=== PATIENT | male | born 1985 | race Caucasian/White ===

== ENCOUNTER → 2022-09-21 13:26 | Outpatient (CLI) | payer OTHER, MEDICAID, SELFPAY ==
[2022-09-21 15:40] LABS: Add Manual Diff / Slide Review NO; Basophils Absolute Auto 0 /uL (0-100); Basophils Percent Auto 0.4 % (0-2); Eosinophils Absolute Auto 0 /uL (0-450); Eosinophils Percent Auto 0.6 % (2-4); Hematocrit 44.4 % (41-53); Lymphocytes Absolute Auto 1500 /uL (1100-4500); Lymphocytes Percent Auto 23.2 % (25-40); Mean Corpuscular HGB Conc 33.8 % (30-36); Mean Corpuscular Hemoglobin 29.6 PG (26-34); Mean Corpuscular Volume 87.6 fL (80-100); Monocytes Absolute Auto 500 /uL (0-900); Monocytes Percent Auto 7.4 % (3-14); Neutrophils Absolute Auto 4300 /uL (1500-7000); Neutrophils Percent Auto 68.4 % (50-75); Platelet Count 272 X10^3/uL (150-400); Red Blood Cell Count 5.07 X10^6/uL (4.5-5.9); Red Cell Distribution Width 14.1 % (11.6-14.8); White Blood Cell Count 6.3 X10^3/uL (4.5-11.0)
[2022-09-21 16:12] LABS: Alanine Aminotransferase 23 IU/L (<50); Albumin 4.6 g/dL (3.5-5.0); Albumin Globulin Ratio 1.2 (1.0-2.8); Alkaline Phosphatase 69 U/L (38-126); Aspartate Aminotransferase 26 IU/L (17-59); BUN Creatinine Ratio 13.5 (6-22); Bilirubin Total 0.6 mg/dL (0.2-1.3); Blood Urea Nitrogen 12 mg/dL (9-20); Calcium 9.2 mg/dL (8.4-10.2); Carbon Dioxide 28 mmol/L (22-32); Chloride 102 mmol/L (98-107); Estimated Glomerular Filt Rate > 60 mL/min (>60); Globulin 3.7 g/dL (1.7-4.1); Glucose 99 mg/dL (70-100); HEMOLYSIS < 15 (0-50); Potassium 4.4 mmol/L (3.4-5.1); Sodium 139 mmol/L (137-145); Total Protein 8.3 g/dL (6.3-8.2)
== END ==
PROVIDERS: Referring Provider Registered Nurse; Visit Provider Registered Nurse
DX: R11.2 Nausea with vomiting, unspecified (principal); R19.7 Diarrhea, unspecified
CPT/HCPCS: 36415; 80053; 85025

== ENCOUNTER 2022-12-03 10:47 | Emergency (ER) | payer OTHER, MEDICAID, SELFPAY ==
[2022-12-03 11:00] VITALS: BP 140/93; PULSE 90; RESP 14; TEMP 36.6; O2SAT 99; BMI 25.7
--- NOTE | 2022-12-03 11:09 | DI.RAD.S_ITS ---
PROCEDURE: XR CHEST 1V INDICATIONS: suspected sepsis TECHNIQUE: One view of the chest was acquired. COMPARISON: None. FINDINGS: Surgical changes and devices: None. Lungs and pleura: Lungs are clear. No pleural effusions or pneumothorax. Mediastinum: Mediastinal contours appear normal. Heart size is normal. Bones and chest wall: No suspicious bony lesions. Overlying soft tissues appear unremarkable. IMPRESSION: No acute cardiopulmonary findings Approved by: Harvey Lacey M.D. on 12/03/2022 at 11:16
[2022-12-03] MEDS: SODIUM CHLORIDE 0.9% 1,000 ML 1000 ML IV ×2 (11:25→14:39)
[2022-12-03] MEDS: ONDANSETRON 4 MG/2 ML INJ IV (11:26)
[2022-12-03 11:44] LABS: INR 1.2 (0.9-1.3); Prothrombin Time 14.1 SECONDS (10.1-12.7)
[2022-12-03 11:46] LABS: Alanine Aminotransferase 23 IU/L (<50); Albumin 4.6 g/dL (3.5-5.0); Albumin Globulin Ratio 1.2 (1.0-2.8); Alkaline Phosphatase 71 U/L (38-126); Aspartate Aminotransferase 26 IU/L (17-59); BUN Creatinine Ratio 14.9 (6-22); Bilirubin Total 0.9 mg/dL (0.2-1.3); Blood Urea Nitrogen 13 mg/dL (9-20); Calcium 9.4 mg/dL (8.4-10.2); Carbon Dioxide 22 mmol/L (22-32); Chloride 95 mmol/L (98-107); Estimated Glomerular Filt Rate > 60 mL/min (>60); Glucose 114 mg/dL (70-100); HEMOLYSIS < 15 (0-50); Lactate (Lactic Acid) 0.9 mmol/L (0.7-2.1); Lipase 44 U/L (23-300); PTT Partial Thromboplastin Tim 32 SECONDS (26-36); Potassium 3.9 mmol/L (3.4-5.1); Sodium 133 mmol/L (137-145); Total Protein 8.6 g/dL (6.3-8.2)
[2022-12-03 12:13] LABS: Add Manual Diff / Slide Review NO; Basophils Absolute Auto 0 /uL (0-100); Basophils Percent Auto 0.2 % (0-2); Eosinophils Absolute Auto 0 /uL (0-450); Eosinophils Percent Auto 0.1 % (2-4); Hematocrit 43.9 % (41-53); Hemoglobin 14.7 g/dL (13.5-17.5); Influenza A - CEPHEID Flu A NEGATIVE (NEGATIVE); Influenza B - CEPHEID Flu B NEGATIVE (NEGATIVE); Lymphocytes Absolute Auto 2100 /uL (1100-4500); Mean Corpuscular HGB Conc 33.5 % (30-36); Mean Corpuscular Hemoglobin 28.7 PG (26-34); Mean Corpuscular Volume 85.8 fL (80-100); Monocytes Absolute Auto 1300 /uL (0-900); Monocytes Percent Auto 10.7 % (3-14); Neutrophils Absolute Auto 8400 /uL (1500-7000); Platelet Count 218 X10^3/uL (150-400); Red Blood Cell Count 5.12 X10^6/uL (4.5-5.9); Red Cell Distribution Width 14.7 % (11.6-14.8); Respiratory Syncytial Virus Negative (Negative); White Blood Cell Count 11.8 X10^3/uL (4.5-11.0)
--- NOTE | 2022-12-03 12:17 | ED_ITS ---
HPI - Dental/Oral <RICO Marcelino - Last Filed: 12/03/22 14:55> General Chief complaint: Fever Stated complaint: ABSCESS Time Seen by Provider: 12/03/22 12:03 Source: patient Mode of arrival: Ambulatory History of Present Illness HPI Narrative: Patient presents for dental pain due to suspected dental abscess which he thought popped yesterday and is draining pus from the lower, lateral left tooth which is broken. Patient has history dental decay, multiple fractured teeth with recent dental infection 1 month ago and patient states it was an abscess that started draining prior to him starting Augmentin which he was prescribed. He presents today with worsening lower left dental pain complaining of sensation of abscess popping yesterday and dental nerve pain with anterior cervical lymphadenopathy, fever, chills, nausea and vomiting. Related Data Previous Rx's Medication Instructions Recorded amoxicillin 875 mg-potassium 1 tab PO BID 10 days #20 tabs 12/03/22 clavulanate 125 mg tablet chlorhexidine gluconate 0.12 % 15 ml buccal DAILY gum infection 12/03/22 mouthwash #473 mL hydrocodone 5 mg-acetaminophen 325 1 tab PO TID PRN pain #10 tabs 12/03/22 mg tablet ibuprofen 600 mg tablet 600 mg PO Q6H PRN fever or pain 12/03/22 #30 tabs Allergies Allergy/AdvReac Type Severity Reaction Status Date / Time No Known Drug Allergies Allergy Verified 12/03/22 11:08 Review of Systems <RICO Marcelino - Last Filed: 12/03/22 14:55> Review of Systems ROS Unobtainable: All systems reviewed & are unremarkable except as noted in HPI and below Patient History <RICO Marcelino - Last Filed: 12/03/22 14:55> Medical History (Updated 12/03/22 @ 14:52 by RICO Marcelino) Substance abuse in remission Social History Smoking Status: Current every day smoker Smoking Status: Current every day smoker tobacco type: vaping alcohol intake frequency: holidays/special occasions only Substance Use Type: former substance user and marijuana Exam <RICO Marcelino - Last Filed: 12/03/22 14:55> Narrative Exam Narrative: Reviewed vitals signs and nursing notes. General: cooperative, comfortable, flushed, in pain and mild in no acute distress, well groomed HEENT: symmetrical facial expressions, moist mucous membranes, significant dental decay however gingiva is not erythematous or edematous, 19. Has abscess present at the base which is draining, it is not fluctuant, deep or drainable further. Patient is able to push his finger on the outside and some possible come out on the lateral aspect but the surrounding tissue is not boggy or deep. Left-sided anterior cervical lymphadenopathy but patient is able to turn his head to the left and right and up and down without range of motion difficulty, vision changes, tenderness over his temporal region, he has symmetrical face expressions, PERRLA, no edema or tenderness underneath his jaw or meningeal signs Cardiovascular: regular rate and rhythm, no peripheral edema, warm extremities Respiratory: normal effort, able to speak in complete sentences, without wheezing, stridor, or abnormal breath sounds. No retractions or tachypnea. GI: abdomen soft, nontender to palpation, nondistended, without masses, rebound tenderness or exquisite tenderness with exam. MSK: moves all extremities, neurovascularly intact, no weakness, normal tone Skin: brisk capillary refill, without pallor or erythema, no open wounds Neuro: normal speech and cognition, A&O x3, ambulatory, clear speech Psych: mental status is grossly normal, congruent mood, normal affect, pleasant and cooperative Initial Vital Signs Initial Vital Signs: Vital Signs Temperature 97.9 F 12/03/22 11:00 Pulse Rate 90 12/03/22 11:00 Respiratory Rate 14 12/03/22 11:00 Blood Pressure 140/93 H 12/03/22 11:00 Pulse Oximetry 99 12/03/22 11:00 Oxygen Delivery Method 12/03/22 11:00 <Lucille Villegas, DO - Last Filed: 12/03/22 19:17> Initial Vital Signs Initial Vital Signs: Vital Signs Temperature 97.9 F 12/03/22 11:00 Pulse Rate 90 12/03/22 11:00 Respiratory Rate 14 12/03/22 11:00 Blood Pressure 140/93 H 12/03/22 11:00 Pulse Oximetry 99 12/03/22 11:00 Oxygen Delivery Method 12/03/22 11:00 Course <RICO Marcelino - Last Filed: 12/03/22 14:55> Orders Ordered: ED Orders 12/03/22 11:09 XR chest 1V Stat RT Consult Eval and Treat NOW 12/03/22 11:16 Complete Blood Count AUTO DIFF Stat Comprehensive Metabolic Panel Stat Covid-19 + FLU A/B + RSV - PCR Stat Lactate (Lactic Acid) Stat Lipase Stat Partial Thromboplastin Time Stat Procalcitonin Stat Prothrombin Time INR Stat 12/03/22 12:05 Blood Culture Stat 12/03/22 12:13 Wound Culture and Gram Stain Stat 12/03/22 12:19 CT soft tissue neck w con Stat Discontinued Medications Amoxicillin/Clavulanate Potassium (Amoxicillin/Clav 875/125 Mg) 1 tab PO NOW ONE Stop: 12/03/22 12:15 Last Admin: 12/03/22 14:31 Dose: Not Given Documented By: ANN Dexamethasone (Dexamethasone 10 Mg/Ml Vial) 10 mg PO NOW ONE Stop: 12/03/22 12:15 Last Admin: 12/03/22 12:53 Dose: 10 mg Documented By: YOUSIF Hydromorphone HCl (Hydromorphone 0.5 Mg Inj) 0.5 mg IV NOW ONE Stop: 12/03/22 12:23 Last Admin: 12/03/22 12:53 Dose: 0.5 mg Documented By: YOUSIF Sodium Chloride (Normal Saline 0.9%) 1,000 mls @ 1,000 mls/hr IV BOLUS ONE Stop: 12/03/22 12:08 Last Infusion: 12/03/22 12:52 Dose: 0 mls/hr Documented By: Admin: 12/03/22 11:25 Dose: 1,000 mls/hr Documented By: ANN Ampicillin Sodium/Sulbactam (Sodium 3 gm/ Sodium Chloride) 100 mls @ 200 mls/hr IV NOW ONE Stop: 12/03/22 12:18 Last Infusion: 12/03/22 13:33 Dose: 0 mls/hr Documented By: Admin: 12/03/22 12:53 Dose: 200 mls/hr Documented By: YOUSIF Sodium Chloride (Normal Saline 0.9%) 1,000 mls @ 1,000 mls/hr IV BOLUS ONE Stop: 12/03/22 13:38 Last Infusion: 12/03/22 15:05 Dose: 0 mls/hr Documented By: Admin: 12/03/22 14:39 Dose: 1,000 mls/hr Documented By: ANN Ketorolac Tromethamine (Ketorolac 30 Mg/Ml Vial) 15 mg IM NOW ONE Stop: 12/03/22 12:15 Last Admin: 12/03/22 12:54 Dose: 15 mg Documented By: YOUSIF Ondansetron HCl (Ondansetron 4 Mg/2 Ml Inj) 4 mg IV NOW PRN PRN Reason: Nausea And Vomiting Last Admin: 12/03/22 11:26 Dose: 4 mg Documented By: ANN Oxycodone/Acetaminophen (Oxycodone/Acetaminophen 5/325 Tablet) 1 tab PO NOW ONE Stop: 12/03/22 12:16 Last Admin: 12/03/22 14:31 Dose: Not Given Documented By: ANN Vital Signs Vital signs: Vital Signs - 8 hr 12/03/22 14:08 12/03/22 14:08 12/03/22 15:06 Pulse Rate 75 Blood Pressure 125/75 Pulse Oximetry 96 99 12/03/22 15:07 12/03/22 15:07 Pulse Rate 78 Blood Pressure 120/63 Pulse Oximetry 97 <Lucille Villegas DO - Last Filed: 12/03/22 19:17> Orders Ordered: ED Orders 12/03/22 11:09 XR chest 1V Stat RT Consult Eval and Treat NOW 12/03/22 11:16 Complete Blood Count AUTO DIFF Stat Comprehensive Metabolic Panel Stat Covid-19 + FLU A/B + RSV - PCR Stat Lactate (Lactic Acid) Stat Lipase Stat Partial Thromboplastin Time Stat Procalcitonin Stat Prothrombin Time INR Stat 12/03/22 12:05 Blood Culture Stat 12/03/22 12:13 Wound Culture and Gram Stain Stat 12/03/22 12:19 CT soft tissue neck w con Stat Discontinued Medications Amoxicillin/Clavulanate Potassium (Amoxicillin/Clav 875/125 Mg) 1 tab PO NOW ONE Stop: 12/03/22 12:15 Last Admin: 12/03/22 14:31 Dose: Not Given Documented By: ANN Dexamethasone (Dexamethasone 10 Mg/Ml Vial) 10 mg PO NOW ONE Stop: 12/03/22 12:15 Last Admin: 12/03/22 12:53 Dose: 10 mg Documented By: YOUSIF Hydromorphone HCl (Hydromorphone 0.5 Mg Inj) 0.5 mg IV NOW ONE Stop: 12/03/22 12:23 Last Admin: 12/03/22 12:53 Dose: 0.5 mg Documented By: YOUSIF Sodium Chloride (Normal Saline 0.9%) 1,000 mls @ 1,000 mls/hr IV BOLUS ONE Stop: 12/03/22 12:08 Last Infusion: 12/03/22 12:52 Dose: 0 mls/hr Documented By: Admin: 12/03/22 11:25 Dose: 1,000 mls/hr Documented By: ANN Ampicillin Sodium/Sulbactam (Sodium 3 gm/ Sodium Chloride) 100 mls @ 200 mls/hr IV NOW ONE Stop: 12/03/22 12:18 Last Infusion: 12/03/22 13:33 Dose: 0 mls/hr Documented By: Admin: 12/03/22 12:53 Dose: 200 mls/hr Documented By: YOUSIF Sodium Chloride (Normal Saline 0.9%) 1,000 mls @ 1,000 mls/hr IV BOLUS ONE Stop: 12/03/22 13:38 Last Infusion: 12/03/22 15:05 Dose: 0 mls/hr Documented By: Admin: 12/03/22 14:39 Dose: 1,000 mls/hr Documented By: ANN Ketorolac Tromethamine (Ketorolac 30 Mg/Ml Vial) 15 mg IM NOW ONE Stop: 12/03/22 12:15 Last Admin: 12/03/22 12:54 Dose: 15 mg Documented By: YOUSIF Ondansetron HCl (Ondansetron 4 Mg/2 Ml Inj) 4 mg IV NOW PRN PRN Reason: Nausea And Vomiting Last Admin: 12/03/22 11:26 Dose: 4 mg Documented By: ANN Oxycodone/Acetaminophen (Oxycodone/Acetaminophen 5/325 Tablet) 1 tab PO NOW ONE Stop: 12/03/22 12:16 Last Admin: 12/03/22 14:31 Dose: Not Given Documented By: ANN Vital Signs Vital signs: Vital Signs - 8 hr 12/03/22 14:08 12/03/22 14:08 12/03/22 15:06 Pulse Rate 75 Blood Pressure 125/75 Pulse Oximetry 96 99 12/03/22 15:07 12/03/22 15:07 Pulse Rate 78 Blood Pressure 120/63 Pulse Oximetry 97 MDM - Dental/Oral <Yanyjaennette Benjamin, [facility] - Last Filed: 12/03/22 14:55> Lab Data 12/03/22 11:16 12/03/22 11:16 Labs: Lab Results 12/03/22 12/03/22 12/03/22 Range/Units 11:16 11:16 11:16 WBC 11.8 H (4.5-11.0) X10^3/uL RBC 5.12 (4.5-5.9) X10^6/uL Hgb 14.7 (13.5-17.5) g/dL Hct 43.9 (41-53) % MCV 85.8 (80-100) fL MCH 28.7 (26-34) PG MCHC 33.5 (30-36) % RDW 14.7 (11.6-14.8) % Plt Count 218 (150-400) X10^3/uL Neut % (Auto) 71.0 (50-75) % Lymph % (Auto) 18.0 L (25-40) % [place] % (Auto) 10.7 (3-14) % Eos % (Auto) 0.1 L (2-4) % Baso % (Auto) 0.2 (0-2) % Neut # (Auto) 8400 H (6703-5087) /uL Lymph # (Auto) 2100 (9962-0929) /uL [place] # (Auto) 1300 H (0-900) /uL Eos # (Auto) 0 (0-450) /uL Baso # (Auto) 0 (0-100) /uL PT 14.1 H (10.1-12.7) SECONDS INR 1.2 (0.9-1.3) APTT 32 (26-36) SECONDS Sodium 133 L (137-145) mmol/L Potassium 3.9 (3.4-5.1) mmol/L Chloride 95 L (98-107) mmol/L Carbon Dioxide 22 (22-32) mmol/L BUN 13 (9-20) mg/dL Creatinine 0.87 (0.66-1.25) mg/dL Estimated GFR > 60 (>60) mL/min BUN/Creatinine Ratio 14.9 (6-22) Glucose 114 H (70-100) mg/dL Lactate (0.7-2.1) mmol/L Calcium 9.4 (8.4-10.2) mg/dL Total Bilirubin 0.9 (0.2-1.3) mg/dL AST 26 (17-59) IU/L ALT 23 (<50) IU/L Alkaline Phosphatase 71 (38-126) U/L Total Protein 8.6 H (6.3-8.2) g/dL Albumin 4.6 (3.5-5.0) g/dL Globulin 4.0 (1.7-4.1) g/dL Albumin/Globulin Ratio 1.2 (1.0-2.8) Lipase 44 (23-300) U/L Procalcitonin 1.10 H (<0.5) ng/mL SARS-CoV-2 (PCR) (Negative) Influenza A (RT-PCR) (NEGATIVE) Influenza B (RT-PCR) (NEGATIVE) RSV (PCR) (Negative) 12/03/22 12/03/22 Range/Units 11:16 11:16 WBC (4.5-11.0) X10^3/uL RBC (4.5-5.9) X10^6/uL Hgb (13.5-17.5) g/dL Hct (41-53) % MCV (80-100) fL MCH (26-34) PG MCHC (30-36) % RDW (11.6-14.8) % Plt Count (150-400) X10^3/uL Neut % (Auto) (50-75) % Lymph % (Auto) (25-40) % [place] % (Auto) (3-14) % Eos % (Auto) (2-4) % Baso % (Auto) (0-2) % Neut # (Auto) (1722-9506) /uL Lymph # (Auto) (8459-5409) /uL [place] # (Auto) (0-900) /uL Eos # (Auto) (0-450) /uL Baso # (Auto) (0-100) /uL PT (10.1-12.7) SECONDS INR (0.9-1.3) APTT (26-36) SECONDS Sodium (137-145) mmol/L Potassium (3.4-5.1) mmol/L Chloride (98-107) mmol/L Carbon Dioxide (22-32) mmol/L BUN (9-20) mg/dL Creatinine (0.66-1.25) mg/dL Estimated GFR (>60) mL/min BUN/Creatinine Ratio (6-22) Glucose (70-100) mg/dL Lactate 0.9 (0.7-2.1) mmol/L Calcium (8.4-10.2) mg/dL Total Bilirubin (0.2-1.3) mg/dL AST (17-59) IU/L ALT (<50) IU/L Alkaline Phosphatase (38-126) U/L Total Protein (6.3-8.2) g/dL Albumin (3.5-5.0) g/dL Globulin (1.7-4.1) g/dL Albumin/Globulin Ratio (1.0-2.8) Lipase (23-300) U/L Procalcitonin (<0.5) ng/mL SARS-CoV-2 (PCR) Negative (Negative) Influenza A (RT-PCR) Flu a negative (NEGATIVE) Influenza B (RT-PCR) Flu b negative (NEGATIVE) RSV (PCR) Negative (Negative) Imaging Data CTA - brain/neck: Radiologist's Impression: PROCEDURE:? CT SOFT TISSUE NECK W CON ? INDICATIONS:? LT dental infection vs lupe angina/necrotizing gingivitis ? TECHNIQUE:? After the administration of intravenous contrast, 3.0 mm axial sections acquired from the sella to the aortic arch.? Additional oblique axial 3.0 mm sections acquired through the pharynx.? 3 mm thick coronal and sagittal reformats were generated.? For radiation dose reduction, the following was used:? automated exposure control.? ? COMPARISON:? None. ? FINDINGS: ? Skull Base: The visualized intracranial contents, skull, and orbits are unremarkable.? Visualized paranasal sinuses are clear. ? Pharynx and Larynx:? The nasopharyngeal airway is patent and midline.? Parapharyngeal soft tissues including palatine tonsils and base of the tongue are normal.? Retropharyngeal space unremarkable.? Normal appearance of the false and true vocal cords. ? ? Muscles and Fascial Planes:? Fascial planes are well maintained.? No abscess or mass lesion. ? Lymph Nodes:? Submental adenopathy measures up to 1.4 cm with diffuse subcutaneous edema over the mandible.? Additional scattered deep cervical smaller nodes noted.? No abscess ? Vasculature:? Unremarkable. ? Submandibular and Parotid Glands:? Normal in size and attenuation. ? Thyroid:? Unremarkable.? No enlarged or calcified nodules. ? Bones:? No acute fracture.? No osteolytic or blastic lesion is evident. Normal bone mineralization.? Left 1st molar carious dental disease ? Lung Apices:? The visualized lung apices are clear. ? IMPRESSION: ? 1. Mild left-sided soft tissue swelling associated with left mandibular carious dental disease without evidence of organized abscess.? ? 2. Submental reactive adenopathy ? ? ? Approved by: Harvey Lacey M.D. on 12/03/2022 at 13:48? Chest x-ray: Radiologist's Impression: PROCEDURE:? XR CHEST 1V ? INDICATIONS:? suspected sepsis ? TECHNIQUE:? One view of the chest was acquired.? ? COMPARISON:? None. ? FINDINGS:? ? Surgical changes and devices:? None.? ? Lungs and pleura:? Lungs are clear.? No pleural effusions or pneumothorax.? ? Mediastinum:? Mediastinal contours appear normal.? Heart size is normal.? ? Bones and chest wall:? No suspicious bony lesions.? Overlying soft tissues appear unremarkable.? ? IMPRESSION:? No acute cardiopulmonary findings ? ? ? Approved by: Harvey Lacey M.D. on 12/03/2022 at 11:16? [facility] Narrative Medical decision making narrative: Chief complaint: Dental abscess to the lower left molar with pain, draining Patient presents for dental pain due to suspected dental abscess which he thought popped yesterday and is draining pus from the lower, lateral left tooth which is broken. Patient has history dental decay, multiple fractured teeth with recent dental infection 1 month ago and patient states it was an abscess that started draining prior to him starting Augmentin which he was prescribed. He presents today with worsening lower left dental pain complaining of sensation of abscess popping yesterday and dental nerve pain with anterior cervical lymphadenopathy, fever, chills, nausea and vomiting. Independent historian: Patient Differential diagnoses include: Deep neck space infection, RPA, [employer], Lupe?s angina, periapical abscess, pulpitis, gingivitis, necrotizing ulcerative gingiv itis/Vincent's angina, periodontitis. No e/o gingival hyperplasia or recent new medications, antibiotic resistant bacteria, TMJ, otitis, trigeminal neuralgia, mass, ACS. Pertinent lab work independently reviewed: Leukocytosis of 11.8 with left shift, normal creatinine and GFR, lactate of 0.9 normal total bilirubin, elevated procalcitonin of 1.1, negative respiratory panel for COVID, influenza a, B and RSV. Pertinent imaging independently reviewed: Chest x-ray is negative for focal consolidation or acute cardiopulmonary abnormality, CT soft tissue neck, pending see results below Plan and course of care: He is currently distress and there is a mild to moderate suspicion for deep space infection with anterior cervical lymphadenopathy but he does not have airway compromise, difficulty swallowing, rigid neck, meningeal signs, or acute fever with chills. He does appear dehydrated. Abscesses draining purulence drainage from the lower left 19. Ordered IV fluid, lab work including lactic and procalcitonin, blood cultures x2, obtained sample of pus and is pending for Gram stain and culture. Since patient has fever and chills recently with vomiting considered CT soft tissue with contrast to evaluate for deep space infection. No recent facial trauma, no changes to vision, dysphonia, dysphagia. or concern for drug reaction. [id number] concern for antibiotic resistance however i f he did not finish or start his Augmentin previously, this could have been ongoing in the submandibular space. CT soft tissue with contrast obtained for evaluation depth/involvement of infection. Pain was treated with Toradol, Dilaudid, later Percocet, due to patient's procalcitonin elevation to 1.10. When lab work indicates leukocytosis and elevated procalcitonin, Augmentin antibiotic was changed to Unasyn as patient is pending CT neck at this time CT soft tissue neck shows mild left-sided soft tissue swelling associated with left mandibular carious dental disease without evidence of organized absence and reactive submental adenopathy measuring up to 1.4 cm with diffuse subcutaneous edema over the mandible without air, scattered deep cervical smaller nodes are noted without abscess. No acute fracture, no osteolytic or blastic lesion evident. Will treat patient with Augmentin b.i.d. times 10 days, chlorhexidine oral rinse, he was given a dose of Decadron in the emergency department for a soft tissue edema. He is tolerating p.o. and feels much better than he did when he came in. Patient discharged home and will follow up with dentist. Given contact information for [facility] for dental extraction Discussed return precautions for odontogenic infections and other dental pain emergencies. Provided dental clinic contact information. <Lucille Flores Bakari, DO - Last Filed: 12/03/22 19:17> Lab Data Labs: Lab Results 12/03/22 12/03/22 12/03/22 Range/Units 11:16 11:16 11:16 WBC 11.8 H (4.5-11.0) X10^3/uL RBC 5.12 (4.5-5.9) X10^6/uL Hgb 14.7 (13.5-17.5) g/dL Hct 43.9 (41-53) % MCV 85.8 (80-100) fL MCH 28.7 (26-34) PG MCHC 33.5 (30-36) % RDW 14.7 (11.6-14.8) % Plt Count 218 (150-400) X10^3/uL Neut % (Auto) 71.0 (50-75) % Lymph % (Auto) 18.0 L (25-40) % [place] % (Auto) 10.7 (3-14) % Eos % (Auto) 0.1 L (2-4) % Baso % (Auto) 0.2 (0-2) % Neut # (Auto) 8400 H (6950-6469) /uL Lymph # (Auto) 2100 (2968-7191) /uL [place] # (Auto) 1300 H (0-900) /uL Eos # (Auto) 0 (0-450) /uL Baso # (Auto) 0 (0-100) /uL PT 14.1 H (10.1-12.7) SECONDS INR 1.2 (0.9-1.3) APTT 32 (26-36) SECONDS Sodium 133 L (137-145) mmol/L Potassium 3.9 (3.4-5.1) mmol/L Chloride 95 L (98-107) mmol/L Carbon Dioxide 22 (22-32) mmol/L BUN 13 (9-20) mg/dL Creatinine 0.87 (0.66-1.25) mg/dL Estimated GFR > 60 (>60) mL/min BUN/Creatinine Ratio 14.9 (6-22) Glucose 114 H (70-100) mg/dL Lactate (0.7-2.1) mmol/L Calcium 9.4 (8.4-10.2) mg/dL Total Bilirubin 0.9 (0.2-1.3) mg/dL AST 26 (17-59) IU/L ALT 23 (<50) IU/L Alkaline Phosphatase 71 (38-126) U/L Total Protein 8.6 H (6.3-8.2) g/dL Albumin 4.6 (3.5-5.0) g/dL Globulin 4.0 (1.7-4.1) g/dL Albumin/Globulin Ratio 1.2 (1.0-2.8) Lipase 44 (23-300) U/L Procalcitonin 1.10 H (<0.5) ng/mL SARS-CoV-2 (PCR) (Negative) Influenza A (RT-PCR) (NEGATIVE) Influenza B (RT-PCR) (NEGATIVE) RSV (PCR) (Negative) 12/03/22 12/03/22 Range/Units 11:16 11:16 WBC (4.5-11.0) X10^3/uL RBC (4.5-5.9) X10^6/uL Hgb (13.5-17.5) g/dL Hct (41-53) % MCV (80-100) fL MCH (26-34) PG MCHC (30-36) % RDW (11.6-14.8) % Plt Count (150-400) X10^3/uL Neut % (Auto) (50-75) % Lymph % (Auto) (25-40) % [place] % (Auto) (3-14) % Eos % (Auto) (2-4) % Baso % (Auto) (0-2) % Neut # (Auto) (2739-1714) /uL Lymph # (Auto) (5776-6629) /uL [place] # (Auto) (0-900) /uL Eos # (Auto) (0-450) /uL Baso # (Auto) (0-100) /uL PT (10.1-12.7) SECONDS INR (0.9-1.3) APTT (26-36) SECONDS Sodium (137-145) mmol/L Potassium (3.4-5.1) mmol/L Chloride (98-107) mmol/L Carbon Dioxide (22-32) mmol/L BUN (9-20) mg/dL Creatinine (0.66-1.25) mg/dL Estimated GFR (>60) mL/min BUN/Creatinine Ratio (6-22) Glucose (70-100) mg/dL Lactate 0.9 (0.7-2.1) mmol/L Calcium (8.4-10.2) mg/dL Total Bilirubin (0.2-1.3) mg/dL AST (17-59) IU/L ALT (<50) IU/L Alkaline Phosphatase (38-126) U/L Total Protein (6.3-8.2) g/dL Albumin (3.5-5.0) g/dL Globulin (1.7-4.1) g/dL Albumin/Globulin Ratio (1.0-2.8) Lipase (23-300) U/L Procalcitonin (<0.5) ng/mL SARS-CoV-2 (PCR) Negative (Negative) Influenza A (RT-PCR) Flu a negative (NEGATIVE) Influenza B (RT-PCR) Flu b negative (NEGATIVE) RSV (PCR) Negative (Negative) Discharge Plan Departure Patient Disposition: Home Clinical Impression: Chronic dental infection, Lymphadenopathy, submental, Dental disease Instructions: Tooth Abscess, DI for Tooth Decay Activity Restrictions/Additional Instructions: *You have been diagnosed with a dental abscess which was concerning for a deep neck infection. Since you had fever and chills and lab work showing your infection, I wanted to rule out a worsened infection with blood cultures and imaging. Please start this antibiotic and see if you have any worsening, if you do, come back to the emergency department as soon as possible. It will take 24 hours at least for your infection to start improving on antibiotics but if you get worse, I do not want you to get sicker at home. Stay hydrated, use ibuprofen and Tylenol as needed for your pain, you can use breakthrough pain medicine as needed but take something to soften your stool if you have constipation. Below are 3 Dental Clinics of low-cost that you can follow-up with to have these teeth pulled. It is concerning when you have chronic infections as this can make you sick for a long period of time and it is best to have these teeth pulled when this is happening. The CT does not show evidence of deep space infection so this is good and he can go home and come back if the antibiotics do not help you get better. [facility] [address], [place] [address] Open ? Closes 5PM [facility] [address] [facility] [address], [place] [address] Closed from 12p-1p [facility] [address], [place] [address] Appointments: [employer] *What to do: *Please continue to take your regular medications as directed. [x ] New medication prescriptions sent to your pharmacy: [[facility] ] [ ] New medication written as a paper prescription [ ] No new medications given *Please follow up with your primary care provider in 2-3 days, call for an ap pointment. Let them know you were seen in the Emergency Department and that we asked that you be seen for follow-up. We will electronically transmit a record of today's note if your PCP is in our system *If you do not have a primary care provider please contact [phone] to establish care with one of the [facility] primary care providers. *Return to Emergency Department if you should have any new, worsening, or concerning symptoms, such as [fever greater than 101F, chills, worsening pain, persistent vomiting or other bothersome symptoms]. Prescriptions: New amoxicillin-pot clavulanate 875-125 mg tablet 1 tab PO BID 10 Days Qty: 20 0RF hydrocodone-acetaminophen 5-325 mg tablet 1 tab PO TID PRN (Reason: pain) Qty: 10 0RF ibuprofen 600 mg tablet 600 mg PO Q6H PRN (Reason: fever or pain) Qty: 30 0RF chlorhexidine gluconate 0.12 % mouthwash 15 ml buccal DAILY Qty: 473 0RF Rx Instructions: Swish and spit once daily or every other day as needed for dental infection Referrals: [facility] [Outside] ([facility] [address], [place] [address] Open ? Closes 5PM [facility] [place] [address] [facility] [address], [place] [address] Closed from 12p-1p [facility] [address], [place] [address] Appointments: [employer] ) Stand Alone Forms: Patient Portal/API, Work Release Note <Lucille Villegas, DO - Last Filed: 12/03/22 19:17> Cosign ED Attending Cosignature Attestation: I was immediately available in the department for consultation. Documentation has been reviewed. Reviewed labs and imaging.
--- NOTE | 2022-12-03 12:19 | DI.CT.S_ITS ---
PROCEDURE: CT SOFT TISSUE NECK W CON INDICATIONS: LT dental infection vs lupe angina/necrotizing gingivitis TECHNIQUE: After the administration of intravenous contrast, 3.0 mm axial sections acquired from the sella to the aortic arch. Additional oblique axial 3.0 mm sections acquired through the pharynx. 3 mm thick coronal and sagittal reformats were generated. For radiation dose reduction, the following was used: automated exposure control. COMPARISON: None. FINDINGS: Skull Base: The visualized intracranial contents, skull, and orbits are unremarkable. Visualized paranasal sinuses are clear. Pharynx and Larynx: The nasopharyngeal airway is patent and midline. Parapharyngeal soft tissues including palatine tonsils and base of the tongue are normal. Retropharyngeal space unremarkable. Normal appearance of the false and true vocal cords. Muscles and Fascial Planes: Fascial planes are well maintained. No abscess or mass lesion. Lymph Nodes: Submental adenopathy measures up to 1.4 cm with diffuse subcutaneous edema over the mandible. Additional scattered deep cervical smaller nodes noted. No abscess Vasculature: Unremarkable. Submandibular and Parotid Glands: Normal in size and attenuation. Thyroid: Unremarkable. No enlarged or calcified nodules. Bones: No acute fracture. No osteolytic or blastic lesion is evident. Normal bone mineralization. Left 1st molar carious dental disease Lung Apices: The visualized lung apices are clear. IMPRESSION: 1. Mild left-sided soft tissue swelling associated with left mandibular carious dental disease without evidence of organized abscess. 2. Submental reactive adenopathy Approved by: Harvey Lacey M.D. on 12/03/2022 at 13:48
[2022-12-03 12:27] LABS: COVID-19 CEPHEID 4-PLEX PCR Negative (Negative)
[2022-12-03] MEDS: AMPICILLIN/SULBACTAM 3 GM 3 GM in SODIUM CHLORIDE 0.9% 100 ML IV (12:53)
[2022-12-03] MEDS: HYDROMORPHONE 0.5 MG INJ IV (12:53)
[2022-12-03] MEDS: DEXAMETHASONE 10 MG/ML VIAL PO (12:53)
[2022-12-03] MEDS: KETOROLAC 30 MG/ML VIAL 15 MG IM (12:54)
[2022-12-03 14:08] VITALS: BP 125/75; PULSE 75; O2SAT 96
[2022-12-03 15:06] VITALS: O2SAT 99
[2022-12-03 15:07] VITALS: BP 120/63; PULSE 78; O2SAT 97
--- NOTE | 2022-12-03 15:16 | PC.NURSE ---
assessment done by provider
== END 2022-12-03 15:21 | disposition home or self-care (01) ==
PROVIDERS: Emergency Medicine; Emergency Provider Nurse Practitioner Critical Care Medicine
DX: K04.7 Periapical abscess without sinus (principal); R59.0 Localized enlarged lymph nodes; K08.9 Disorder of teeth and supporting structures, unspecified; Z20.822 Contact with and (suspected) exposure to COVID-19
CPT/HCPCS: 0241U; 36415; 70491; 71045; 80053; 83605; 83690; 84145; 85025; 85610; 85730; 87040; 87070; 87205; 96361; 96365; 96372; 96375; 99284; J0295; J1100; J1170; J1885; J2405

== ENCOUNTER 2023-04-03 11:57 | Emergency (ER) | payer OTHER, MEDICAID, SELFPAY ==
[2023-04-03 12:00] VITALS: BP 156/90; PULSE 72; RESP 16; TEMP 36.4; O2SAT 99; BMI 26.3
--- NOTE | 2023-04-03 12:05 | DI.CT.S_ITS ---
PROCEDURE: CT HEAD/BRAIN WO CON INDICATIONS: ladder fell on head TECHNIQUE: Noncontrast 4.5 mm thick angled axial sections acquired from the foramen magnum to the vertex, with coronal and sagittal reformats. For radiation dose reduction, the following was used: automated exposure control, adjustment of mA and/or kV according to patient size. COMPARISON: None. FINDINGS: Image quality: Excellent. CSF spaces: Basal cisterns are patent. No extra-axial fluid collections. Ventricles are normal in size and shape. Brain: No midline shift. No intracranial masses or hemorrhage. Monteiro-white matter interface is normal. Skull and face: Calvarium and visualized facial bones are intact, without suspicious lesions. Sinuses: Visualized sinuses and mastoids are clear. IMPRESSION: No acute intracranial process. Dictated by: Dhaval Sauceda M.D. on 04/03/2023 at 12:40 Approved by: Dhaval Sauceda M.D. on 04/03/2023 at 12:41
--- NOTE | 2023-04-03 12:05 | DI.CT.S_ITS ---
PROCEDURE: CT CERVICAL SPINE WO CON INDICATIONS: ladder fell on head TECHNIQUE: Noncontrast 3 mm thick sections acquired from the skull base to the T4 level. Sagittal and coronal reformats were then constructed. For radiation dose reduction, the following was used: automated exposure control, adjustment of mA and/or kV according to patient size. COMPARISON: None. FINDINGS: Image quality: Excellent. Bones: No fractures or dislocations. Visualized superior ribs are intact. Soft tissues: Prevertebral soft tissues are normal in thickness. No paravertebral hematomas. No apical pneumothoraces. IMPRESSION: No evidence acute cervical fracture or dislocation. Dictated by: Dhaval Sauceda M.D. on 04/03/2023 at 12:41 Approved by: Dhaval Sauceda M.D. on 04/03/2023 at 12:43
[2023-04-03] MEDS: CYCLOBENZAPRINE 10 MG TABLET PO (12:59)
[2023-04-03] MEDS: ACETAMINOPHEN 325 MG TABLET 975 MG PO (12:59)
[2023-04-03 13:00] VITALS: BP 137/83; PULSE 60; RESP 14
--- NOTE | 2023-04-03 17:41 | ED_ITS ---
HPI - Head Injury <Mehran Chavez PA-C - Last Filed: 04/03/23 17:46> General Chief complaint: Trauma Stated complaint: had ladder dropped on head at work Time Seen by Provider: 04/03/23 12:10 History of Present Illness HPI Narrative: 38-year-old male with no reported past medical history presents to the ED status post a closed head injury sustained at work just prior to arrival. Patient states the a 32 ft ladder that was collapsed into a 16 ft height fell accid entally fell on his head. Patient denies loss of consciousness. Patient is not on blood thinners. Patient complains of pain at the top of his head with the ladder struck him, neck pain and upper back pain that is paraspinal on the right side. Patient denies chest pain, shortness of breath, changes in vision, lightheadedness, dizziness, nausea, vomiting. Related Data Previous Rx's Medication Instructions Recorded chlorhexidine gluconate 0.12 % 15 ml buccal DAILY gum infection 12/03/22 mouthwash #473 mL hydrocodone 5 mg-acetaminophen 325 1 tab PO TID PRN pain #10 tabs 12/03/22 mg tablet ibuprofen 600 mg tablet 600 mg PO Q6H PRN fever or pain 12/03/22 #30 tabs cyclobenzaprine 10 mg tablet 10 mg PO TID PRN muscle spasm 3 04/03/23 days #10 tabs Allergies Allergy/AdvReac Type Severity Reaction Status Date / Time No Known Drug Allergies Allergy Verified 12/03/22 11:08 Review of Systems <Mehran Chavez PA-C - Last Filed: 04/03/23 17:46> Review of Systems ROS Unobtainable: All systems reviewed & are unremarkable except as noted in HPI and below Constitutional Constitutional: Denies chills, Denies fatigue, Denies fever(s), Denies frequent falls, Reports headache(s), Denies lethargy and Denies weakness Eyes Eyes: Denies change in vision, Denies eye discharge, Denies irritation and Denies loss of vision ENT Ears, Nose, Mouth, and Throat: Denies change in voice, Denies dizziness, Reports headache(s), Reports neck pain, Denies sore throat and Denies throat swelling Cardiovascular Cardiovascular: Denies chest pain, Denies irregular heart rhythm, Denies lightheadedness, Denies palpitations, Denies dyspnea, Denies dyspnea on exertion and Denies orthopnea Respiratory Respiratory: Denies cough, Denies dyspnea, Denies dyspnea on exertion and Denies wheezing Gastrointestinal Gastrointestinal: Denies abdominal pain, Denies change in bowel habits, Denies diarrhea, Denies nausea and Denies vomiting Genitourinary Genitourinary: Denies hematuria, Denies flank pain, Denies urinary incontinence and Denies urinary urgency Musculoskeletal Musculoskeletal: Reports back pain, Denies muscle weakness, Reports neck pain, Denies numbness and Denies tingling Integumentary/Breasts Skin/Breast: Denies pruritus, Denies erythema, Denies rash and Denies wounds Neurologic Neurologic: Denies behavioral changes, Denies confusion, Denies dizziness, Denies frequent falls, Reports headache(s), Denies loss of vision, Denies numbness, Denies tingling and Denies weakness Psychiatric Psychiatric: Denies anxiety, Denies behavioral changes, Denies confusion, Denies depression, Denies homicidal ideation and Denies suicidal ideation Endocrine Endocrine: Denies fatigue, Denies flushing and Denies palpitations Hematologic/Lymphatic Hematologic/Lymphatic: Denies easy bruising Allergic/Immunologic Allergic/Immunologic: Denies urticaria, Denies throat swelling and Denies wheezing Patient History <Mehran Chavez PA-C - Last Filed: 04/03/23 17:46> Medical History Substance abuse in remission Social History Smoking Status: Current every day smoker Smoking Status: Current every day smoker tobacco type: vaping alcohol intake frequency: holidays/special occasions only Substance Use Type: former substance user and marijuana Exam <Mehran Chavez PA-C - Last Filed: 04/03/23 17:46> Narrative Exam Narrative: Const General:?cooperative, healthy appearing and comfortable [facility] Head:?normal to inspection; there is some tenderness to palpation of the top of the head, however no palpable hematoma or skull depressions. Skin is intact. Ears:?hearing grossly normal bilaterally Nose:?external nose normal Face and sinus:?normal facial exam and sinuses nontender Mouth:?oral mucosae normal Throat:?posterior oropharynx normal Eyes General:?appearance normal, both eyes and all related structures Neck Neck:?normal visual inspection and no lymphadenopathy noted Resp Effort & Inspection:?normal respiratory effort Auscultation:?clear to auscultation bilaterally Cardio Rate:?regular rate Rhythm:?regular rhythm Musculoskeletal There is some midline tenderness to palpation in the cervical region. There is paraspinal tenderness in the midthoracic region on the right side. Strength and sensation is intact. There is full range of motion. Patient is neurovascularly intact. Neuro General:?patient alert, patient awake and patient oriented x3 Initial Vital Signs Initial Vital Signs: Vital Signs Temperature 97.5 F L 04/03/23 12:00 Pulse Rate 72 04/03/23 12:00 Respiratory Rate 16 04/03/23 12:00 Blood Pressure 156/90 H 04/03/23 12:00 Pulse Oximetry 99 04/03/23 12:00 Oxygen Delivery Method Room Air 04/03/23 12:00 <Abimael Dale DO - Last Filed: 04/03/23 17:52> Initial Vital Signs Initial Vital Signs: Vital Signs Temperature 97.5 F L 04/03/23 12:00 Pulse Rate 72 04/03/23 12:00 Respiratory Rate 16 04/03/23 12:00 Blood Pressure 156/90 H 04/03/23 12:00 Pulse Oximetry 99 04/03/23 12:00 Oxygen Delivery Method Room Air 04/03/23 12:00 Course <Mehran Chavez PA-C - Last Filed: 04/03/23 17:46> Orders Ordered: ED Orders 04/03/23 12:05 CT cervical spine wo con Stat CT head/brain wo con Stat Discontinued Medications Acetaminophen (Acetaminophen 325 Mg Tablet) 975 mg PO NOW ONE Stop: 04/03/23 12:42 Last Admin: 04/03/23 12:59 Dose: 975 mg Documented By: ANN Cyclobenzaprine HCl (Cyclobenzaprine 10 Mg Tablet) 10 mg PO NOW ONE Stop: 04/03/23 12:42 Last Admin: 04/03/23 12:59 Dose: 10 mg Documented By: ANN Vital Signs Vital signs: Vital Signs - 8 hr 04/03/23 12:00 04/03/23 12:13 04/03/23 13:00 Temperature 97.5 F L Pulse Rate 72 60 Respiratory Rate 16 14 Blood Pressure 156/90 H 137/83 Pulse Oximetry 99 Oxygen Delivery Method Room Air Room Air <Abimael Dale DO - Last Filed: 04/03/23 17:52> Orders Ordered: ED Orders 04/03/23 12:05 CT cervical spine wo con Stat CT head/brain wo con Stat Discontinued Medications Acetaminophen (Acetaminophen 325 Mg Tablet) 975 mg PO NOW ONE Stop: 04/03/23 12:42 Last Admin: 04/03/23 12:59 Dose: 975 mg Documented By: ANN Cyclobenzaprine HCl (Cyclobenzaprine 10 Mg Tablet) 10 mg PO NOW ONE Stop: 04/03/23 12:42 Last Admin: 04/03/23 12:59 Dose: 10 mg Documented By: ANN Vital Signs Vital signs: Vital Signs - 8 hr 04/03/23 12:00 04/03/23 12:13 04/03/23 13:00 Temperature 97.5 F L Pulse Rate 72 60 Respiratory Rate 16 14 Blood Pressure 156/90 H 137/83 Pulse Oximetry 99 Oxygen Delivery Method Room Air Room Air MDM - Head Injury <Mehran Chavez PA-C - Last Filed: 04/03/23 17:46> MDM Narrative Medical decision making narrative: 38-year-old male with no reported past medical history presents to the ED status post a closed head injury sustained at work just prior to arrival. Concern for fracture/dislocation versus intracranial hemorrhage versus musculoskeletal sprain/strain. C-collar was applied. CT head and CT C-spine were obtained with no acute findings. C-collar cleared. Patient was given Tylenol and Flexeril for symptoms. Patient's symptoms most likely due to a musculoskeletal sprain/strain. Recommend continued supportive care with ibuprofen, Tylenol, Flexeril. ED return precautions were discussed with patient. Patient verbalized understanding. Medical records reviewed: Yes Discharge Plan Departure Patient Disposition: Home Clinical Impression: Head injury Instructions: Closed Head Injury Activity Restrictions/Additional Instructions: You were evaluated in the ED today for a head injury sustained at work today. Your CT head and CT cervical spine did not show any acute fractures or dislocations or brain bleed. Your symptoms are likely due to musculoskeletal sprain/strain from the whiplash like injury you sustained today. You may take Tylenol, ibuprofen, Flexeril for your symptoms. Return to the ED if you experience worsening symptoms, numbness, tingling, weakness, persistent vomiting. Prescriptions: New cyclobenzaprine 10 mg tablet 10 mg PO TID PRN (Reason: muscle spasm) 3 Days Qty: 10 0RF No Action hydrocodone-acetaminophen 5-325 mg tablet 1 tab PO TID PRN (Reason: pain) Qty: 10 0RF ibuprofen 600 mg tablet 600 mg PO Q6H PRN (Reason: fever or pain) Qty: 30 0RF chlorhexidine gluconate 0.12 % mouthwash 15 ml buccal DAILY Qty: 473 0RF Rx Instructions: Swish and spit once daily or every other day as needed for dental infection Referrals: Miscellaneous,Doctor, MD [Primary Care Provider] - Stand Alone Forms: Patient Portal/API <Abimael Dale, DO - Last Filed: 04/03/23 17:52> Cosign ED Attending Cosignature Attestation: Dr Dale Co-Sign Statement: I was available for consultation during this patient's emergency department visit. This chart is signed by myself for administrative purposes only. I did not have direct contact with this patient during this visit. They were seen independently by the APC.
== END 2023-04-03 13:05 | disposition home or self-care (01) ==
PROVIDERS: Emergency Provider Student in an Organized Health Care Education/Training Program
DX: S09.90XA Unspecified injury of head, initial encounter (principal); M54.2 Cervicalgia; W11.XXXA Fall on and from ladder, initial encounter; Y99.0 Civilian activity done for income or pay
CPT/HCPCS: 70450; 72125; 99284